=== PATIENT | female | born 1995 | race African-American/Black ===

== ENCOUNTER 2016-12-27 21:35 | Emergency (ER) | payer SELFPAY ==
[2016-12-27 21:44] VITALS: BP 110/69; PULSE 87; RESP 20; TEMP 98.6; O2SAT 100
[2016-12-27] MEDS ORDERED: SODIUM CHLOR 0.9% 1000 ML INJ 1,000 ML IV ONE (22:00)
[2016-12-27] MEDS ORDERED: ONDANSETRON HCL 4 MG/2 ML VIAL IV PUSH ONE (22:00)
--- NOTE | 2016-12-27 22:07 | PD ---
HPI Chief Complaint: Altered Mental Status Time Seen by Provider: 21:51 Travel History International Travel<30 days: No Contact w/Intl Traveler<30days: No History of Present Illness HPI Patient comes in by EMS after being found altered at a local [employer] football game. Patient was found to be combative and nonverbal by EMS. Patient is currently not answering questions. Thus limiting history of present illness. PFSH Past Medical History Narrative Medical Unable to obtain ?: Unknown Social History Tobacco Use: No (unable to obtain) Allergies-Medications (Allergen,Severity, Reaction): Coded Allergies: Unable to Assess (Verified Allergy, Unknown, 12/27/16) Review of Systems ROS Limitations: Altered Mental Status Except as stated in HPI: all other systems reviewed are Neg Physical Exam Exam Limitations: Altered Mental Status Narrative GENERAL: Well-developed, well nourished, in no acute distress, and non-ill appearing. SKIN: Focused skin assessment warm and dry. HEAD: Atraumatic. Normocephalic. EYES: Pupils equal and round. EOMI. No scleral icterus. No injection or drainage. Lateral nystagmus noted. ENT: No nasal bleeding or discharge. Mucous membranes pink and moist. NECK: Trachea midline. No JVD. Supple. No nuclear rigidity. CARDIOVASCULAR: Regular rate and rhythm. No murmur appreciated. RESPIRATORY: No accessory muscle use. No respiratory distress. Clear to auscultation. Breath sounds equal bilaterally. GASTROINTESTINAL: Abdomen soft, non-tender, nondistended, and no guarding. Hepatic and splenic margins not palpable. Normal bowel sounds 4. No pulsatile mass. MUSCULOSKELETAL: No obvious deformities. No clubbing. No cyanosis. No edema. Patient moving all 4 extremities. NEUROLOGICAL: Awake and alert. Data Data Last Documented VS Vital Signs Date Time Temp Pulse Resp B/P (MAP) Pulse Ox O2 Delivery O2 Flow Rate FiO2 12/27/16 22:27 100 Room Air 12/27/16 22:26 20 12/27/16 21:44 98.6 87 110/69 (83) Orders Orders Basic Metabolic Panel (Bmp) (12/27/16 21:54) Complete Blood Count With Diff (12/27/16 21:54) Urinalysis - C+S If Indicated (12/27/16 21:54) Ct Brain W/O Iv Contrast(Rout) (12/27/16 21:54) Blood Glucose (10/12/17 21:54) Ecg Monitoring (12/27/16 21:54) Iv Access Insert/Monitor (12/27/16 21:54) Oximetry (12/27/16 21:54) Drug Screen, Random Urine (12/27/16 21:54) Alcohol (Ethanol) (12/27/16 21:54) Cath For Specimen (12/27/16 21:54) Ed Urine Pregnancytest Poc (12/27/16 21:54) Sodium Chlor 0.9% 1000 Ml Inj (Ns 1000 M (12/27/16 22:00) Ondansetron Inj (Zofran Inj) (12/27/16 22:00) Labs Laboratory Tests Test 12/27/16 22:00 White Blood Count 6.4 TH/MM3 Red Blood Count 5.04 MIL/MM3 Hemoglobin 11.7 GM/DL Hematocrit 36.3 % Mean Corpuscular Volume 72.1 FL Mean Corpuscular Hemoglobin 23.3 PG Mean Corpuscular Hemoglobin Concent 32.2 % Red Cell Distribution Width 16.0 % Platelet Count 323 TH/MM3 Mean Platelet Volume 8.3 FL Neutrophils (%) (Auto) 46.5 % Lymphocytes (%) (Auto) 41.2 % Monocytes (%) (Auto) 11.9 % Eosinophils (%) (Auto) 0.2 % Basophils (%) (Auto) 0.2 % Neutrophils # (Auto) 3.0 TH/MM3 Lymphocytes # (Auto) 2.7 TH/MM3 Monocytes # (Auto) 0.8 TH/MM3 Eosinophils # (Auto) 0.0 TH/MM3 Basophils # (Auto) 0.0 TH/MM3 CBC Comment DIFF FINAL Differential Comment Urine Color YELLOW Urine Turbidity CLEAR Urine pH 6.0 Urine Specific [place] 1.030 Urine Protein 30 mg/dL Urine Glucose (UA) NEG mg/dL Urine Ketones 80 mg/dL Urine Occult Blood SMALL Urine Nitrite NEG Urine Bilirubin NEG Urine Urobilinogen 4.0 MG/DL Urine Leukocyte Esterase SMALL Urine RBC 18 /hpf Urine WBC 3 /hpf Urine Squamous Epithelial Cells 2 /hpf Urine Amorphous Sediment RARE Urine Mucus MANY /lpf Microscopic Urinalysis Comment CATH-CULT NOT IND MDM Medical Decision Making Medical Screen Exam Complete: Yes Emergency Medical Condition: Yes Differential Diagnosis Alcohol intoxication, drug intoxication, anemia, UTI, , electrolyte abnormality, encephalopathy, close head injury, intracranial hemorrhage, other Narrative Course Patient was seen and examined. Initial laboratory and radiologic studies were ordered. Patient signed out to Dr. Begum at the end of my shift. Please see her documentation for final diagnosis and disposition. Zachary Atkins Dec 27, 2016 22:07
[2016-12-27 22:26] VITALS: RESP 20; O2SAT 100
[2016-12-27 22:27] LABS: BLOOD, URINE SMALL (NEG); GLUCOSE,URINE NEG (NEG); KETONE, URINE 80 mg/dL (NEG); MUCUS URINE MANY /lpf (OCC); NITRITE,URINE NEG (NEG); SQUAMOUS EPITHELIAL CELL URINE 2 /hpf (0-5); URINE COLOR YELLOW (YELLW/STRAW)
[2016-12-27 22:33] LABS: COMMENT (UR) CATH-CULT NOT IND; CULTURE IF INDICATED CATH CULTURE NOT IND
[2016-12-27 22:35] LABS: BASOPHIL % 0.2 % (0.0-2.0); EOSINOPHIL % 0.2 % (0.0-4.0); HEMATOCRIT 36.3 % (35.0-46.0); HEMO FLAGS DIFF FINAL; LYMPH % 41.2 % (9.0-44.0); LYMPHOCYTE # 2.7 TH/MM3 (1.0-4.8); MEAN CELL VOLUME 72.1 FL (80.0-100.0); MEAN CORPUSCULAR HEMOGLOBIN 23.3 PG (27.0-34.0); MEAN CORPUSCULAR HGB CONC 32.2 % (32.0-36.0); MONO % 11.9 % (0.0-8.0); NEUT % 46.5 % (16.0-70.0); PLATELET COUNT 323 TH/MM3 (150-450); RED BLOOD COUNT 5.04 MIL/MM3 (4.00-5.30); WHITE BLOOD COUNT 6.4 TH/MM3 (4.0-11.0)
[2016-12-27 22:44] LABS: ANION GAP 10 MEQ/L (5-15); BLOOD UREA NITROGEN 7 MG/DL (7-18); CHLORIDE 105 MEQ/L (98-107); GLOMERULAR FILTRATION RATE 68 ML/MIN (>89); SODIUM (NA) 138 MEQ/L (136-145)
[2016-12-27 22:49] LABS: ALCOHOL LESS THAN 3 MG/DL (0-5)
[2016-12-27 22:50] LABS: POTASSIUM 2.8 MEQ/L (3.5-5.1)
[2016-12-27] MEDS ORDERED: POTASSIUM CHLORIDE 20 MEQ CONTROLLED RELEASE TAB PO ONE (23:00)
[2016-12-27] MEDS: POTASSIUM CHLOR 20 MEQ PREMIX 100 ML IV SCH (23:14)
[2016-12-27 23:16] VITALS: BP 109/61
[2016-12-28] MEDS: POTASSIUM CHLOR 20 MEQ PREMIX 100 ML IV SCH (01:00)
--- NOTE | 2016-12-28 02:38 | RADRPT ---
EXAM DATE/TIME: 12/28/2016 02:21 [facility] COMPARISON: No previous studies available for comparison. INDICATIONS : Altered mental status. RADIATION DOSE: 56.35 CTDIvol (mGy) MEDICAL HISTORY : None SURGICAL HISTORY : None. ENCOUNTER: Initial ACUITY: 1 day PAIN SCALE: 0/10 LOCATION: cranial TECHNIQUE: Multiple contiguous axial images were obtained of the head. Using automated exposure control and adj ustment of the mA and/or kV according to patient size, radiation dose was kept as low as reasonably a chievable to obtain optimal diagnostic quality images. DICOM format image data is available electro nically for review and comparison. FINDINGS: CEREBRUM: The ventricles are normal for age. No evidence of midline shift, mass lesion, hemorrhage or acute in farction. No extra-axial fluid collections are seen. POSTERIOR FOSSA: The cerebellum and brainstem are intact. The 4th ventricle is midline. The cerebellopontine angle i s unremarkable. EXTRACRANIAL: The visualized portion of the orbits is intact. SKULL: The calvaria is intact. No evidence of skull fracture. CONCLUSION: 1. Exam is degraded by some motion artifact but no intracranial mass, hemorrhage or shift identified. No hydrocephalus. Brad Nagy MD on December 28, 2016 at 2:34 Board Certified Radiologist. This report was verified electronically.
--- NOTE | 2016-12-28 03:34 | PD ---
Physical Exam Narrative I, Dr. Begum, have reviewed the advance practice practitioner's documentation and am in agreement, met with the patient face to face, made the diagnosis, and the medical decision making was done by me. 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 Labs reviewed, no leukocytosis. Hypokalemic at 2.8. Replaced with IV and oral KCL. States her potassium is always low. Pt given NS IVF. Lactic acid normal at 0.9. Alcohol negative. Utox positive for cannabinoids. Pt was initially bizarre, awake and alert but not answering questions. Then she started talking but not answering some questions. Pt was reevaluated at bedside and is now AAOx3 and answering questions. She denies any suicidal ideation or homicidal ideations. CT brain negative. Pt's parents are here and said she has done this before. She was seen at another hospital and released by psych. Pt does not want further testing and able to make decisions. Parents are here to accompany pt home and said she is back to her baseline mental status. She will follow up with psych and PMD as outpatient. Data Data Last Documented VS Vital Signs Date Time Temp Pulse Resp B/P (MAP) Pulse Ox O2 Delivery O2 Flow Rate FiO2 12/28/16 04:20 12/27/16 22:27 100 Room Air 12/27/16 22:26 20 12/27/16 21:44 98.6 87 Orders Orders Basic Metabolic Panel (Bmp) (12/27/16 21:54) Complete Blood Count With Diff (12/27/16 21:54) Urinalysis - C+S If Indicated (12/27/16 21:54) Blood Glucose (12/27/16 21:54) Ecg Monitoring (12/27/16 21:54) Iv Access Insert/Monitor (12/27/16 21:54) Oximetry (12/27/16 21:54) Drug Screen, Random Urine (12/27/16 21:54) Alcohol (Ethanol) (12/27/16 21:54) Cath For Specimen (12/27/16 21:54) Ed Urine Pregnancytest Poc (12/27/16 21:54) Sodium Chlor 0.9% 1000 Ml Inj (Ns 1000 M (12/27/16 22:00) Ondansetron Inj (Zofran Inj) (12/27/16 22:00) Potassium Chloride (Kcl) (12/27/16 23:00) Potassium Chlor 20 Meq Premix (Kcl 20 Me (12/27/16 23:00) Lactic Acid (12/27/16 23:08) Ct Brain W/O Iv Contrast(Rout) (12/28/16 ) Ed Discharge Order (12/28/16 03:44) Labs Laboratory Tests Test 12/27/16 22:00 12/28/16 01:51 White Blood Count 6.4 TH/MM3 Red Blood Count 5.04 MIL/MM3 Hemoglobin 11.7 GM/DL Hematocrit 36.3 % Mean Corpuscular Volume 72.1 FL Mean Corpuscular Hemoglobin 23.3 PG Mean Corpuscular Hemoglobin Concent 32.2 % Red Cell Distribution Width 16.0 % Platelet Count 323 TH/MM3 Mean Platelet Volume 8.3 FL Neutrophils (%) (Auto) 46.5 % Lymphocytes (%) (Auto) 41.2 % Monocytes (%) (Auto) 11.9 % Eosinophils (%) (Auto) 0.2 % Basophils (%) (Auto) 0.2 % Neutrophils # (Auto) 3.0 TH/MM3 Lymphocytes # (Auto) 2.7 TH/MM3 Monocytes # (Auto) 0.8 TH/MM3 Eosinophils # (Auto) 0.0 TH/MM3 Basophils # (Auto) 0.0 TH/MM3 CBC Comment DIFF FINAL Differential Comment Urine Color YELLOW Urine Turbidity CLEAR Urine pH 6.0 Urine Specific [place] 1.030 Urine Protein 30 mg/dL Urine Glucose (UA) NEG mg/dL Urine Ketones 80 mg/dL Urine Occult Blood SMALL Urine Nitrite NEG Urine Bilirubin NEG Urine Urobilinogen 4.0 MG/DL Urine Leukocyte Esterase SMALL Urine RBC 18 /hpf Urine WBC 3 /hpf Urine Squamous Epithelial Cells 2 /hpf Urine Amorphous Sediment RARE Urine Mucus MANY /lpf Microscopic Urinalysis Comment CATH-CULT NOT IND Blood Urea Nitrogen 7 MG/DL Creatinine 0.87 MG/DL Random Glucose 132 MG/DL Calcium Level 8.9 MG/DL Sodium Level 138 MEQ/L Potassium Level 2.8 MEQ/L Chloride Level 105 MEQ/L Carbon Dioxide Level 23.0 MEQ/L Anion Gap 10 MEQ/L Estimat Glomerular Filtration Rate 68 ML/MIN Urine Opiates Screen NEG Urine Barbiturates Screen NEG Urine Amphetamines Screen NEG Urine Benzodiazepines Screen NEG Urine Cocaine Screen NEG Urine Cannabinoids Screen POS Ethyl Alcohol Level LESS THAN 3 MG/DL Lactic Acid Level 0.9 mmol/L MDM Supervised Visit with SURYA: Yes Diagnosis Primary Impression: Bizarre behavior Patient Instructions: General Instructions Departure Forms: Tests/Procedures Additional Instruction: Please follow up with psychiatrist and primary care physician as outpatient. Return to the ED if symptoms worsen. Med/Other Pt SpecificInfo: No Change to Meds Disposition: 01 DISCHARGE HOME Condition: Stable Luz Marina Begum DO Dec 28, 2016 03:34
== END 2016-12-28 04:01 | disposition home or self-care (01) ==
LOC: EDBD 21:35 → NEPE 21:35
DX: R41.82 Altered mental status, unspecified (principal)
CPT/HCPCS: 70450; 80048; 80307; 81001; 83605; 84703; 85025; 96361; 96374; 99285; J3480; J7030; P9612